=== PATIENT | female | born 1990 | race Caucasian/White ===

== ENCOUNTER 2020-11-22 12:58 | Emergency (ER) | payer BC, SELFPAY ==
[2020-11-22 13:00] VITALS: BP 112/73; PULSE 104; RESP 16; TEMP 37.2; O2SAT 97
--- NOTE | 2020-11-22 13:15 | ED.GENADULT ---
HPI - General Adult General Chief complaint: Unspecified Stated complaint: mastitis Time Seen by Provider: 11/22/20 13:03 History of Present Illness HPI narrative: Patient is a 30-year-old female who presents ER with concerns for mastitis. Patient is 5 days from a spontaneous vaginal delivery. Her OB is located in [place]. Patient reports over the last couple days she started having increasing breast pain some redness. She started some old dicloxacillin that she had leftover from several years back. Her OB called an additional antibiotics today. She reports she has been having fevers and persistent chills. She has decreased appetite. She is trying to stay hydrated with oral fluids. Patient also reports she has some discomfort with urination today. Her lochia has gone away. She has no abnormal vaginal discharge or bleeding at this time. Patient reports she has been making a lot of milk and that she is unsure of her breast pain mainly on the right side is due to increased production of milk, a clogged breast duct, or mastitis which she has had previously. There is no abnormal drainage or significant increase in redness/induration. Related Data Allergies Allergy/AdvReac Type Severity Reaction Status Date / Time No Known Allergies Allergy Verified 11/22/20 13:12 Review of Systems Constitutional: Constitutional: Reports body ache(s), Reports chills and Reports fever(s) ENT: Denies nasal congestion and Denies sore throat Respiratory: Respiratory: Denies chest congestion, Denies cough and Denies dyspnea Gastrointestinal: Gastrointestinal: Denies diarrhea, Reports nausea and Denies vomiting Integumentary/Breasts: Skin/Breast: Denies dry skin, Denies erythema and Reports skin pain PMFSH Past Medical History Medical History (Updated 11/22/20 @ 14:00 by Javier Herrera MD) Healthy female adult Surgical History Surgical History (Updated 11/22/20 @ 13:16 by Javier Herrera MD) H/O breast augmentation Social History Social History (Updated 11/22/20 @ 13:16 by Javier Herrera MD) Smoking status: Never smoker Exam Narrative: Exam Narrative: GENERAL: Well-appearing, well-nourished, and in no acute distress. HEAD: Normocephalic, atraumatic. CHEST: Clear to auscultation. No respiratory distress. HEART: Tachycardic regular.. Normal peripheral pulses. Breast exam: Normal feeling breast with reported right-sided lateral discomfort without significant evidence of cellulitis/abscess. No palpable knot/cord to indicate clogging of duct. SKIN: Warm, dry, no rash. NEURO: Alert and oriented x3. PSYCH: Normal mood and affect. Course Course Emergency Course: Patient hydrated with IV fluid. Suspect patient symptoms are coming from potential mastitis and not necessarily her urine. Recommend continuing dicloxacillin following up with her OB. Patient has been verbalized understanding of treatment plan and results. Vital Signs Vital signs: Vital Signs Temperature 98.9 F 11/22/20 13:00 Pulse Rate 104 H 11/22/20 13:00 Respiratory Rate 16 11/22/20 13:00 Blood Pressure 112/73 11/22/20 13:00 Pulse Oximetry 97 11/22/20 13:00 Temperature 98.9 F 11/22/20 13:00 Pulse Rate 104 H 11/22/20 13:00 Respiratory Rate 16 11/22/20 13:00 Blood Pressure 112/73 11/22/20 13:00 Pulse Oximetry 97 11/22/20 13:00 Medical Decision Making Vital Signs Vital Signs: Vital Signs Temperature 98.9 F 11/22/20 13:00 Pulse Rate 104 H 11/22/20 13:00 Respiratory Rate 16 11/22/20 13:00 Blood Pressure 112/73 11/22/20 13:00 Pulse Oximetry 97 11/22/20 13:00 Temperature 98.9 F 11/22/20 13:00 Pulse Rate 104 H 11/22/20 13:00 Respiratory Rate 16 11/22/20 13:00 Blood Pressure 112/73 11/22/20 13:00 Pulse Oximetry 97 11/22/20 13:00 Lab Data Labs: Lab Results 11/22/20 Range/Units 13:26 Urine Color Yellow (Yellow) Urine Appearance Cloudy H (Clear) Uri
[2020-11-22] MEDS: SODIUM CHLORIDE 0.9% IV 1,000 ML 999 ML IV CONT (13:35)
[2020-11-22 13:37] LABS: Add Urine Microscopic? YES; Appearance Urine Cloudy (Clear); Bacteria Urine Trace /hpf; Bilirubin Urine Negative (Negative); Blood Urine Negative (Negative); Color Urine Yellow (Yellow); Glucose Urine UA Negative (Negative); Ketones Urine 1+ mg/dL (Negative); Leukocyte Esterase Ur Trace LEU/UL (Negative); Mucus Urine Few /lpf; Nitrate Urine Negative (Negative); Protein Urine 2+ mg/dL (Negative); RBC Urine 0-2 /hpf (0-2); Squamous Epithelial Cell Urine Few /hpf (Few); Transitional Epi Cells Urine Rare /hpf (None Seen); Urobilinogen Urine Negative mg/dL (<2.0)
[2020-11-22 13:50] LABS: Specific Grav Ur 1.039 (1.001-1.035)
== END 2020-11-22 14:48 | disposition home or self-care (01) ==
PROVIDERS: Emergency Provider Emergency Medicine; PCP Chiropractor
DX: O91.22 Nonpurulent mastitis associated with the puerperium (principal)
CPT/HCPCS: 81001; 96360; 99283; J7030

== ENCOUNTER 2022-10-23 00:08 | Day surgery (SDC) | payer OTHER, SELFPAY ==
[2022-10-09 12:42] VITALS: BMI 19.0
--- NOTE | 2022-10-09 12:45 | PC.NURSE ---
Report to the Outpatient Waiting Room, entrance under the green pavilion located off [facility], at time 0600 on date 10/23/22. Planned Procedure Time: 0730. Time changes happen often and if your time is changed the preop area will call you the afternoon before. - You and your visitor will be asked to self-screen and do not enter if you have any COVID symptoms. - Only one visitor is requested with a max of two and NO children visitors are allowed at this time. - The patient visitor may be requested to leave or wait in car when not with patient due to distancing restrictions. - A mask is optional within the hospital at this time. Patients may have clear liquids (water, carbonated beverages, clear teas, apple juice) until 3 hours prior to surgery with a maximum of 20 ounces. - No food from midnight until time of surgery Take the following medications with a SIP of water the morning of surgery: NONE DO NOT STOP ANY OF YOUR OTHER PRESCRIPTION MEDICATIONS PRIOR TO SURGERY EXCEPT THE FOLLOWING Medications to discontinue per physician: N/A Date to take last dose: N/A Please no make-up, nail eritrean, hairspray, perfume, deodorant, or body powder the day of surgery. No jewelry (including any body piercings) or valuables the day of surgery, leave them at home. Please take a shower or bath the night before, or the morning of, surgery with an antibacterial soap. Wear comfortable, loose fitting clothing. - Jewelry must be removed prior to entering the operating room. Rings and piercings that are not removed may be cut off. - The hospital will not accept responsibility for valuables. - Please leave all valuables, including medications, at home the day of surgery. If you are going home after surgery, a licensed power truck driver must drive you home. - NO public transportation without another adult if you receive anesthesia. - We recommend that an adult stay with you for 24 hours following discharge. - We also recommend that you do not drive, make important decision, drink alcoholic beverages, or take any drugs that were not prescribed by your health care provider for at least 24 hours after your discharge time. Follow any additional instructions given to you from your surgeon. If you or anyone in your household have experienced Covid symptoms in the past week, please notify your surgeon or the nurse liaison at the phone number below for possible testing. Telephone instructions given to PT - RENEE CHAPIN and asked if any additional questions and then verbalized understanding. Patient advised to call surgeon office or pre surgery nurse liaison [phone] if any additional questions.
[2022-10-23] VITALS (8 sets, daily range): BP systolic 115–137; BP diastolic 76–88; PULSE 68–104; RESP 14–22; TEMP 36.3–37; O2SAT 100
[2022-10-23] MEDS: LACTATED RINGERS 1,000 ML 30 ML IV CONT ×2 (06:30→08:25)
--- NOTE | 2022-10-23 07:06 | WPDHPUPDATE1 ---
History and Physical Update Update Date/Time: 10/23/22 07:06 History and Physical has been reviewed, including an updated exam of the patient. There are NO changes in the patient's condition. Risks, benefits, and alternatives have been discussed and questions answered. Patient agrees to proceed with procedure.
--- NOTE | 2022-10-23 07:14 | W.PM.PROC2 ---
Procedure Note - Detailed Date of Procedure 10/23/22 Pre-op Diagnosis Hx of Breast Aug Post-op Diagnosis Same Procedure Performed Bilateral breast implant exchange Surgeon Americo Verduzco MD Anesthesia General Findings Previous implants : Smooth, intact Right: 300 Left: 280 Replacement implants: Bilateral Amaury Lagos SoftTouch 470cc Right REF# [id number] SN [id number] Left REF# [id number] SN [id number] Description of Procedure Preoperatively the risks, benefits, alternatives were discussed in extensive detail. I wanted to be very realistic about the risks involved as well as expectations. I was clear about how we could actually make her worse. She would like to be significantly larger and we discussed final sizing. She would like to utilize the same implants rather than differential. Answered all questions to satisfaction. Voiced a clear understanding. Consent obtained. She was taken the operating room placed supine on the operating room table. Anesthesia provided by anesthesiology and prepped and draped in a standard sterile fashion. Surgical time-out was taken. 1% lidocaine and 0.25% Marcaine with epinephrine was used to provide a field block. Tegaderm nipple lynne were placed. Fifteen blade used to excise the previous IMF scars. Dissection was continued down until the capsules were identified. These were dual plane position and capsulotomy was performed bilateral as needed for new implants. Also on the left IMF slight popcorn capsulorraphy to provide limited left IMF elevation. I then copiously irrigated with 3 L of saline solution on TUR tubing. Verified strict hemostasis. I then irrigated with Betadine containing solution. Using a no-touch technique and a Chris funnel the implant was introduced into the pocket. This was closed with 2-0 PDS followed by 3-0 Monocryl and a running subcuticular 4-0 Monocryl followed by tissue glue. Dressings were placed. She was woken taken to the PACU without difficulty. All instrument sponge counts were correct at the end of the case. Estimated Blood Loss 20 Drains No Packing No Pathology None sent Complications No immediate complications Condition Stable Disposition PACU
--- NOTE | 2022-10-23 07:23 | P.PNAN_ITS ---
Anes - Initial Pre Proc Eval Procedure: Operation Date: 10/23/22 07:30 Proposed Procedures p Bilateral Breast Implant Exchange - Americo Verduzco MD Date/Time: 10/23/22 07:23 Surgeon: Americo Verduzco MD Pre Op Diagnosis: Hx of Breast Aug Patient Data Age: 32 Gender: F Height: 1.73 m Weight: 56.7 kg Last Vital Signs Temp 98.6 F 10/23/22 06:30 Pulse 74 10/23/22 06:30 Resp 16 10/23/22 06:30 BP 120/76 10/23/22 06:30 Pulse Ox 100 10/23/22 06:30 O2 Del Method Room Air 10/23/22 06:30 Allergies Allergy/AdvReac Type Severity Reaction Status Date / Time No Known Allergies Allergy Verified 10/23/22 06:57 Home Medications Medication Instructions Recorded Confirmed Type norethindrone 1 mg-ethinyl 1 tablet PO DAILY 10/09/22 10/23/22 History estradiol 10 mcg (24)-iron 10 mcg(2) tablet (Lo Loestrin Fe) Patient hx anesthesia problems: none Family hx anesthesia problems: none Results Review: All pre-operative results and documents have been reviewed as part of the pre- operative evaluation. [facility] Past Medical History Medical History Healthy female adult Surgical History Surgical History (Updated 01/07/22 @ 10:22 by Leanne Upton) H/O breast augmentation Social History Social History Smoking status: Never smoker Alcohol intake: never Substance use: never Substance use type: does not use Living arrangements: with family Spiritual care concerns: No Anes - Eval Final PreProcedure Day of Procedure 10/23/22 07:23 Patient weight: normal Heart: regular rate and rhythm Lungs: clear to auscultation Airway: Mallampati scale class II Neurological: alert and oriented Last oral intake: >/= 8 hours ASA classification: I Emergent: no Anesthetic plan: proceed Anesthesia type and monitoring: general LMA and standard monitoring Results Review: All pre-operative results and documents have been reviewed as part of the pre- operative evaluation. Informed Consent: The patient's anesthetic plan and its attendant risks and benefits were discus sed with the patient/family/POA. Questions were solicited and answers provided to the satisfaction of the patient/family/POA.
[2022-10-23] MEDS: ceFAZolin 2 GM/D5W 50 ML 2 GM/50 ML BAG IVPB (07:26)
[2022-10-23] MEDS: TRANEXAMIC ACID 1,000MG/ISO100 1,000 MG/100 ML BAG 200 MG IVPB (07:35)
[2022-10-23] MEDS: NACL 0.9% IRRIG POUR BOTTLE 900 ML, GENTAMICIN SULFATE INJ 160 MG, ceFAZolin 2 GM, POVI... IRRIGATION (08:00)
[2022-10-23] MEDS: LIDO 1%/EPINEPHRINE 1:100,000 20 ML VIAL 30 ML INFILTRATE (08:09)
[2022-10-23] MEDS: BUPivacaine HCL 0.25% PF 30 ML VIAL INFILTRATE (08:09)
[2022-10-23] MEDS: ACETAMINOPHEN 500 MG TABLET 1000 MG PO (09:20)
== END 2022-10-23 09:58 | disposition home or self-care (01) ==
PROVIDERS: PCP Chiropractor; Visit Provider Surgery Plastic and Reconstructive Surgery
PROC: (CPT 19370; principal; 2022-10-23 07:30)
DX: Z41.1 Encounter for cosmetic surgery (principal)
CPT/HCPCS: 19370; 19325; A9270; J0690; J1100; J1580; J2250; J2405; J2704; J3010; J7120

== ENCOUNTER 2024-08-22 14:24 | Outpatient (CLI) | payer OTHER, SELFPAY ==
--- NOTE | ~2024-08-22 | US_ITS ---
EXAMINATION: US pelvic complete w TV INDICATION: Abnormal uterine and vaginal bleeding Comparison:No prior studies for comparison. TECHNIQUE: Multiple transabdominal and endovaginal sonographic images of the pelvis performed. FINDINGS: The uterus measures 8 x 4.6 x 3.7 cm. There is an IUD in the endometrium. The endometrial c omplex measures 5 mm. The right ovary measures 9 x 1.7 x 1.7 cm and the left ovary measures 2 x 2.1 x 1.9 cm. There are sm all follicles in each ovary. Normal doppler signal in both ovaries. There is no free fluid in the pelvis. There are no abnormal masses seen on either side. IMPRESSION: 1. Unremarkable pelvic ultrasound. Reviewed, dictated and finalized at location B. 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
== END 2024-08-22 14:25 | disposition home or self-care (01) ==
LOC: GOSHIMG 14:26
PROVIDERS: PCP Chiropractor; Visit Provider Obstetrics & Gynecology Gynecology
DX: N92.0 Excessive and frequent menstruation with regular cycle (principal)
CPT/HCPCS: 76830; 76856

== ENCOUNTER 2024-10-14 09:42 | Emergency (ER) | payer OTHER, SELFPAY ==
--- NOTE | ~2024-10-14 | XR_ITS ---
EXAMINATION: XR chest 2V DATE: 10/14/2024 12:52 INDICATION: Shortness of breath and cough. TECHNIQUE: Frontal and lateral views of the chest were obtained. COMPARISON: None. FINDINGS: There is no pneumonia, pleural effusion, or pneumothorax. The heart size is normal. Breast implants are noted. IMPRESSION: 1. No acute cardiopulmonary disease. Reviewed, dictated and finalized at location A. NICAL RECRUITER
[2024-10-14 09:53] VITALS: BP 142/79; PULSE 96; RESP 14; TEMP 36.6; O2SAT 100
--- OUTSIDE RECORDS SUMMARY | 2024-10-14 10:25 | XMS_ITS | Encounter Summary ---
Author Organization [facility] Address [address] [place] [address] Care Team Providers Care Trailer Park Manager Name Role Phone Unavailable Primary Care Provider Unavailabl e Encounter Details Date Type Department Care Team (Late st Contact Info) Description 02/25/2019 Lab Requisition [facility] Care DermPath Lab [address] [place] [id number] Ellie Victoria DO [address] [place] [address] Social History Tobacco Use Types Packs/Day Years Used Date Smoking Tobacco: Never Assessed Sex and Gender Information Value Date Recorded Sex Assigned at Not on file Gender Identity Not on file Sexual Orientation Not on file documented as of this encounter Plan of Treatment Not on file documented as of this encounter Procedures Procedure Name Priority Date/Time Associated Diagnosis Comments DERMATOPATHOLOGY Routine 02/24/2019 12:0 0 AM CDT documented in this encounter Results * DERMATOPATHOLOGY (02/24/2019 12:00 AM CDT) Case Report Dermatopathology Report Case: [id number] Authorizing Provider: Ellie Victoria DO Collected: 02/24/2019 12:00 AM Pathologist: Mony Henderson MD Received: 02/25/2019 07:28 AM Specimen: Skin, right calf 9 1:15 PM CDT DERMATOPATHOLOGY LABORATORY Final Diagnosis Specimen A. SKIN, right calf: DERMATOFIBROMA (D23.9) NOT PRESENT AT MARGIN DERMAL SCAR (L90.5) 9 1:15 PM CDT DERMATOPATHOLOGY LABORATORY Clinical History Bx proven non-healing eroded papule prior bx non specific. DF vs carcinoma. 9 1:15 PM CDT DERMATOPATHOLOGY LABORATORY Gross Description Specimen A: Received is one formalin filled container labeled with the patient's name and designated right calf. The specimen consists of a non-oriented ellipse of skin measuring [id number]. The epidermal surface consists of a centrally located 4x4mm previous biopsy site. The margin is inked green. The 12 o'clock and 6 o'clock tips are submitted in cassette 1. The remainder of the ellipse is serially sectioned and submitted in cassettes 2-3. Jar 0. 1:15 PM CDT DERMATOPATHOLOGY LABORATORY Microscopic Description Specimen A. SKIN, right calf: There is epidermal hyperplasia. Within the dermis, there are fibrohistiocytic cells in haphazard array among coarse collagen bundles. This lesion is not present at the margin of the specimen. There are fibroblasts and collagen bundles oriented parallel to the skin surface with elongated blood vessels, some of which are oriented perpendicular to the skin surface. 1:15 PM CDT DERMATOPATHOLOGY LABORATORY Disclaimer An external and internal positive and negative controls are appropriate for the histochemical, immunohistochemical and immunofluorescence stain(s) in this case (if any), except where stated explicitly. The performance characteristics of the stain(s) cited in this report were developed and its performance characteristic determined by the Dermatopathology Laboratory at [facility], directed by Dr. Anna Beal. These tests need not be, and therefore are not, approved by the [place] Food and Drug Administration. The tests are used for clinical purposes. Billing Codes Specimen Charges Stain Charges 05886 1 1:15 PM CDT DERMATOPATHOLOGY LABORATORY Embedded Images 1:15 PM CDT DERMATOPATHOLOGY LABORATORY Pathology/Cytolog y TISSUE SPECIMEN FROM SKIN / Unknown 02/24/2019 02/25/2019 7:28 AM CDT Ellie Victoria DO LAB - PATHOLOGY/C YTOLOGY ORDERABLES DERMATOPATHOLOGY LABORATORY [facility] - Department of Dermatology [address] [place] [address], [address] [place] [address], [facility] [phone] documented in this encounter Visit Diagnoses Not on filedocumented in this encounter
--- OUTSIDE RECORDS SUMMARY | 2024-10-14 10:25 | XMS_ITS | Referral Summary ---
Author Organization [facility] Address [address] [place] [address] Care Team Providers Care Inhalation Therapist Name Role Phone Jesus Suero MD Primary Care Provider Ellie Kellogg MD Unavailable [phone] Allergies No known active allergies Medications 25/iron fum/folic/dha (-1 ORAL) Take by mouth daily. Active Active Problems Problem Noted Date Diagnosed Date Mass of left wrist 04/15/2021 Term 10/12/2020 Immunizations Name Administration Dates Next Due Influenza, Unspecified 06/07/2020 Social History Tobacco Use Types Packs/Day Years Used Date Smoking Tobacco: Never Smokeless Tobacco: Never Alcohol Use Standard Drinks/Week Comments No 0 (1 standard drink = 0.6 oz pur e alcohol) [place] Depression Scale Answer Date Recorded [place] Depression Scale Total 0 10/13/2020 The thought of harming myself has occurred to me . 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 Gender Identity Not on file Sexual Orientation Not on file Last Filed Vital Signs Vital Sign Reading Time Taken Comments Blood Pressure 115/68 02/20/2022 10:52 AM CDT Pulse 74 02/20/2022 10:52 AM CDT Temperature 36.9 C (98.4 F) 10/14/2020 8:05 AM PROFESSOR OF BUSINESS ADMINISTRATION Respiratory Rate 18 10/14/2020 8:05 AM PROFESSOR OF BUSINESS ADMINISTRATION Oxygen Saturation 99% 10/13/2020 8:02 PM PROFESSOR OF BUSINESS ADMINISTRATION Inhaled Oxygen Concentration - - Weight 70.3 kg (155 lb) 10/12/2020 10:02 AM PROFESSOR OF BUSINESS ADMINISTRATION Height 172.7 cm (5' 8 ) 10/12/2020 10:02 AM PROFESSOR OF BUSINESS ADMINISTRATION Body Mass Index 23.57 10/12/2020 10:02 AM PROFESSOR OF BUSINESS ADMINISTRATION Plan of Treatment Not on file Medical Devices Implanted Type Area Research Professional Device Identifier Shelf Expiration Date Model / Serial / Lot Silicone Breast [employer] Mammomark Cormark Tissue U Marker Breast Biopsy Collagen Titanium [id number] - [id number] Implanted:Qty: 1 on 02/20/2022 at [facility] Left: Breast [employer] [id number] / / Insurance [facility] PPO [place] [facility] Advance Directives For more information, please contact: [phone] * Full Code (Latest Code Status on File) Date Activated Date Inactivated Comments 10/12/2020 9:35 PM 10/14/2020 2:38 PM * Full Code Date Activated Date Inactivated Comments 10/12/2020 10:32 AM 10/12/2020 9:35 PM Full CPR in c ase of cardiopulmonary arrest * Full Code Date Activated Date Inactivated Comments 04/02/2018 4:41 PM 04/03/2018 10:32 PM * Full Code Date Activated Date Inactivated Comments 04/01/2018 8:53 PM 04/02/2018 4:41 PM Full CPR in case of cardiopulmonary arrest Care Teams Inhalation Therapist Relationship Specialty Start Date End Date Jesus Suero MD PCP - General 10/14/17 Ellie Kellogg MD Consulting Physician Obstetrics and Gynecology 10/13/20
--- OUTSIDE RECORDS SUMMARY | 2024-10-14 10:25 | XMS_ITS | Clinical Summary ---
Author Organization [facility] Address [address] [place] [address] Care Team Providers Care Packing Inspector Name Role Phone Unavailable Primary Care Provider Unavailabl e Source Comments [facility],non-[facility] Affiliates and Associated Physician Practices is amultiple site organization consisting of ambulatory clinics and hospital sitesin [place], [place], [place] and [place]. This disclosure is being madepursuant to the Care Everywhere program and may not contain all information available regarding this patient. Last updated 18.[facility] [employer] Social History Tobacco Use Types Packs/Day Years Used Date Smoking Tobacco: Never Assessed Sex and Gender Information Value Date Recorded Sex Assigned at Not on file Gender Identity Not on file Sexual Orientation Not on file Plan of Treatment Health Maintenance Due Date Last Done Comments PAP SMEAR 1989 HIV SCREENING 2004 HEPATITIS C SCREENING 08/09/2007 DTAP/TDAP/TD VACCINES (1 - Tdap) 2008 HEPATITIS B VACCINE (1 of 3 - 19+ 3-dose series) 2008 COVID-19 VACCINE ( - 2023-2 5 season) 2024 INFLUENZA VACCINE (#1) 2024 DEPRESSION SCREENING 09/07/2024 ZOSTER VACCINE (1 of 2) 2039 HIB VACCINE Aged Out No longer eligi ble based on patient's age to complete this topic HPV VACCINE Aged Out No longer eligi ble based on patient's age to complete this topic MENINGOCOCCAL (Group B) VACCINE Aged Out No longer eligible based on patient's age to complete this topic MENINGOCOCCAL VACCINE Aged Out No darshan maximus eligible based on patient's age to complete this topic PNEUMOCOCCAL VACCINE Aged Out No long er eligible based on patient's age to complete this topic
--- OUTSIDE RECORDS SUMMARY | 2024-10-14 10:25 | XMS_ITS | Clinical Summary ---
Author Organization [facility] Address [address] [place] [address] Care Team Providers Care Steward/Stewardess Railroad Dining Car Name Role Phone Jesus Suero MD Primary Care Provider Ellie Kellogg MD Unavailable [phone] Allergies No known active allergies Medications 25/iron fum/folic/dha (-1 ORAL) Take by mouth daily. 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) High grade squamous intraepi thelial lesion of cervix - (Added by TW Conv) Mass of breast Lump or mass in breast - (Added by TW Conv) 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 Never 10/13/2020 Comments Unknown Sex and Gender Information Value Date Recorded Sex Assigned at Not on file Legal Sex Female 7:24 AM DIRECTOR AND PROFESSOR Gender Identity Not on file Sexual Orientation Not on file Obstetrics History Para Term AB IAB SAB Ectopic Multiple Livin g Live Births 3 2 2 1 1 0 2 2 Date Outcome GA Total Labor Labor/2nd/3rd Weight Sex Type Anes PTL Tonya A1 A5 Name Clin 2017 Term 39w 3d 2h 34m 1h 52m/0h 36m/0h 06m 3.459 kg (7 lb 10 oz) F Vag-S pont Epidur al N Livin g 8 9 APOLINAR VILLEDAGI RLLAU RA Foreign niño, Ellie Davis MD Complications:None Delivery Location:[facility] Facil [facility] ([facility]) 9 SAB 9w0 d 2020 Term 39w 1d 4h 31m 4h 19m/0h 08m/0h 04m 4.08 kg (8 lb 15.9 oz) M Vag-S pont Epidur al N Livin g 8 9 APOLINAR VILLEDA,SIDNEY YLAUR A Foreign niño, Ellie Davis MD Complications:None Delivery Location:This Facil [facility] ([facility]) Last Filed Vital Signs Vital Sign Reading Time Taken Comments Blood Pressure 115/68 02/20/2022 10:52 AM CDT Pulse 74 02/20/2022 10:52 AM CDT Temperature 36.9 C (98.4 F) 10/14/2020 8:05 AM DIRECTOR AND PROFESSOR Respiratory Rate 18 10/14/2020 8:05 AM DIRECTOR AND PROFESSOR Oxygen Saturation 99% 10/13/2020 8:02 PM DIRECTOR AND PROFESSOR Inhaled Oxygen Concentration - - Weight 70.3 kg (155 lb) 10/12/2020 10:02 AM DIRECTOR AND PROFESSOR Height 172.7 cm (5' 8 ) 10/12/2020 10:02 AM DIRECTOR AND PROFESSOR Body Mass Index 23.57 10/12/2020 10:02 AM DIRECTOR AND PROFESSOR Plan of Treatment Health Maintenance Due Date Last Done Comments Cervical Cancer Screening 1989 Hepatitis C Screening 1989 DTaP/Tdap/Td Vaccine (1 - Tdap) 2000 Varicella Vaccines (1 of 2 - 13+ 2-dose series) 2002 Hepatitis B Screening 2007 Regular Well Visit/Exam 18-64 2007 Depression Screening 10/13/2021 10/13/2020 Influenza Vaccine (#1) 2024 06/07/2020 HPV Vaccines Aged Out No longer eligi ble based on patient's age to complete this topic Pneumococcal vaccine <65 Aged Out No longer eligible based on patient's age to complete this topic Medical Devices Implanted Type Area Community Relations Liaison Device Identifier Shelf Expiration Date Model / Serial / Lot Silicone Breast [employer] Mammomark Cormark Tissue U Marker Breast Biopsy Collagen Titanium [id number] - [id number] Implanted:Qty: 1 on 02/20/2022 at [facility] Left: Breast [employer] [id number] / / Insurance [facility] [place] [facility] H[facility]/PPO Address: [place] [address] [facility] H[facility]/PPO Address: [place] [address] Advance Directives For more information, please contact: [phone] * Full Code (Latest Code Status on [...] in case of cardiopulmonary arrest Care Teams Steward/Stewardess Railroad Dining Car Relationship Specialty Start Date End Date Jesus Suero MD PCP - General 10/14/17 Ellie Kellogg MD Consulting Physician Obstetrics and Gynecology 10/13/20
--- OUTSIDE RECORDS SUMMARY | 2024-10-14 10:25 | XMS_ITS | Patient Health Summary ---
Author Organization [facility] [employer] Address [address] [place] [address] Care Team Providers Care Trade Show Specialist Name Role Phone Unavailable Primary Care Provider Unavailabl e Note from [facility] [employer],non-owned Affiliates and Associated Physician Practices is amultiple site organization consisting of ambulatory clinics and hospital sitesin [place], [place], [place] and [place]. This disclosure is being madepursuant to the Care Everywhere program and may not contain all information available regarding this patient. Last updated 18.[facility] [employer] Social History Tobacco Use Types Packs/Day Years Used Date Smoking Tobacco: Never Assessed Sex and Gender Information Value Date Recorded Sex Assigned at Not on file Gender Identity Not on file Sexual Orientation Not on file Procedures * DERMATOPATHOLOGY(Performed 02/24/2019) * DERMATOPATH TECHNICAL REPORT(Performed 10/19/2018) Results * DERMATOPATHOLOGY (02/24/2019 12:00 AM CDT) Case Report Dermatopathology Report Case: [id number] Authorizing Provider: Ellie Victoria DO Collected: 02/24/2019 [...] of a non-oriented ellipse of skin measuring [id number]. The epidermal surface consists of a centrally [...] characteristic determined by the Dermatopathology Laboratory at [facility], directed by Dr. Anna Beal. These tests need not be, and therefore are not, approved by the [place] Food and Drug Administration. The tests are used for clinical purposes. Billing Codes Specimen Charges Stain Charges 12982 1 9 1:15 PM CDT DERMATOPATHOLOGY LABORATORY Embedded Images 1:15 PM CDT DERMATOPATHOLOGY LABORATORY Pathology/Cytolog y TISSUE SPECIMEN FROM SKIN / Unknown 02/24/2019 02/25/2019 7:28 AM CDT Ellie Victoria DO LAB - PATHOLOGY/C YTOLOGY ORDERABLES DERMATOPATHOLOGY LABORATORY [facility] - Department of Dermatology [address] [place] [address], 5th [place] [address], [facility] [phone] * DERMATOPATH TECHNICAL REPORT (10/19/2018 12:00 AM DIRECTOR OF SOCIAL SERVICES) Case Report Dermatopathology Report Case: [id number] Authorizing Provider: Ellie Victoria DO Collected: 10/19/2018 12:00 AM Pathologist: Dulce Murphy MD Received: 10/20/2018 07:29 AM Specimen: Skin, right calf 12:27 PM [facility] DERMATOPATHOLOGY LABORATORY Addendum 1 At the request of the diagnosing physician, the technical component for Factor XIIIa was performed by [facility] Dermatopathology Laboratory. 12:27 PM [facility] DERMATOPATHOLOGY LABORATORY Addendum electronically signed by Dulce Murphy MD on 10/22/2018 at 12:27 PM Clinical History Eroded papule. Exc vs BCC vs bite. 12:27 PM [facility] DERMATOPATHOLOGY LABORATORY Gross Description Specimen A: Received is one formalin filled container labeled with the patient's name. The specimen consists of a shave measuring 7c3q5fe. Jar 0. [facility] Dermatopathology Laboratory performed the technical component only. 12:27 PM [facility] DERMATOPATHOLOGY LABORATORY Embedded Images 12:27 PM [facility] DERMATOPATHOLOGY LABORATORY DISCLAIMER An external and internal positive and negative controls are appropriate for the histochemical, immunohistochemical and immunofluorescence stain(s) in this case (if any), except where stated explicitly. The performance characteristics of the stain(s) cited in this report were developed and its performance characteristic determined by the Dermatopathology Laboratory at [facility], directed by Dr. Anna Beal. These tests need not be, and therefore are not, approved by the [place] Food and Drug Administration. The tests are used for clinical purposes. 12:27 PM [facility] DERMATOPATHOLOGY LABORATORY Pathology/Cytolog y TISSUE SPECIMEN FROM SKIN / Unknown 10/19/2018 10/20/2018 7:29 AM DIRECTOR OF SOCIAL SERVICES Ellie Victoria DO LAB - PATHOLOGY/C YTOLOGY ORDERABLES DERMATOPATHOLOGY LABORATORY [facility] - Department of Dermatology [address] [place] [address], 5th Floor Lab B [address] [phone]
--- OUTSIDE RECORDS SUMMARY | 2024-10-14 10:25 | XMS_ITS | Encounter Summary ---
Author Organization [facility] Address [address] [facility] [place] [address] Care Team Providers Care Rod Placer Name Role Phone Unavailable Primary Care Provider Unavailabl e Encounter Details Date Type Department Care Team (Late st Contact Info) Description 10/20/2018 Lab Requisition [facility] Care DermPath Lab [address] [facility], [place] [id number] Ellie Victoria DO [address] [facility] [address] [place] [address] Social History Tobacco Use Types Packs/Day Years Used Date Smoking Tobacco: Never Assessed Sex and Gender Information Value Date Recorded Sex Assigned at Not on file Gender Identity Not on file Sexual Orientation Not on file documented as of this encounter Plan of Treatment Not on file documented as of this encounter Procedures Procedure Name Priority Date/Time Associated Diagnosis Comments DERMATOPATH TECHNICAL REPORT Routine 10/19/2018 12:00 AM MARBLE MACHINE TENDER documented in this encounter Results * DERMATOPATH TECHNICAL REPORT (10/19/2018 12:00 AM MARBLE MACHINE TENDER) Case Report Dermatopathology Report Case: [id number] Authorizing Provider: Ellie Victoria DO Collected: 10/19/2018 12:00 AM Pathologist: Dulce Murphy MD Received: 10/20/2018 07:29 AM Specimen: Skin, right calf 9 12:27 PM MARBLE MACHINE TENDER DERMATOPATHOLOGY LABORATORY Addendum 1 At the request of the diagnosing physician, the technical component for Factor XIIIa was performed by [facility] Dermatopathology Laboratory. 9 12:27 PM MARBLE MACHINE TENDER DERMATOPATHOLOGY LABORATORY Addendum electronically signed by Dulce Murphy MD on 10/22/2018 at 12:27 PM Clinical History Eroded papule. Exc vs BCC vs bite. 9 12:27 PM MARBLE MACHINE TENDER DERMATOPATHOLOGY LABORATORY Gross Description Specimen A: Received is one formalin filled container labeled with the patient's name. The specimen consists of a shave measuring 1g4p7ri. Jar 0. [facility] Dermatopathology Laboratory performed the technical component only. 12:27 PM [facility] DERMATOPATHOLOGY LABORATORY Embedded Images 12:27 PM [facility] DERMATOPATHOLOGY LABORATORY DISCLAIMER An external and internal positive and negative controls are appropriate for the histochemical, immunohistochemical and immunofluorescence stain(s) in this case (if any), except where stated explicitly. The performance characteristics of the stain(s) cited in this report were developed and its performance characteristic determined by the Dermatopathology Laboratory at [facility], directed by Dr. Anna Beal. These tests need not be, and therefore are not, approved by the [place] Food and Drug Administration. The tests are used for clinical purposes. 12:27 PM [facility] DERMATOPATHOLOGY LABORATORY Pathology/Cytolog y TISSUE SPECIMEN FROM SKIN / Unknown 10/19/2018 10/20/2018 7:29 AM MARBLE MACHINE TENDER Ellie Victoria DO LAB - PATHOLOGY/C YTOLOGY ORDERABLES DERMATOPATHOLOGY LABORATORY [facility] - Department of Dermatology [address] [place] [address], [address] [place] [address], [facility] [phone] documented in this encounter Visit Diagnoses Not on filedocumented in this encounter
--- OUTSIDE RECORDS SUMMARY | 2024-10-14 10:25 | XMS_ITS | Encounter Summary ---
Author Organization [facility] Address [address] [place] [address] Phone Care Team Providers Care Life Guard Name Role Phone Ale Wiggins DO Primary Care Provider [phone] Jesus Suero MD Primary Care Provider Ellie Kellogg MD Unavailable [phone] Encounter Details Date Type Department Care Team (Latest Contact Info) Description 10/13/2017 Orders Only [facility] CONVERSION Scanning, Provider Social History Tobacco Use Types Packs/Day Years Used Date Smoking Tobacco: Never Comments Unknown Sex and Gender Information Value Date Recorded Sex Assigned at Not on file Legal Sex Female 7:24 AM MARINE CONSULTANT Gender Identity Not on file Sexual Orientation Not on file documented as of this encounter Plan of Treatment Not on file documented as of this encounter Procedures Procedure Name Priority Date/Time Associated Diagnosis Comments OBSTETRIC/GYNECOLOGY ULTRASONOGRAPHY REPORT 10/13/2017 1:52 PM MARINE CONSULTANT documented in this encounter Results * OBSTETRIC/GYNECOLOGY ULTRASONOGRAPHY REPORT (10/13/2017 1:52 PM MARINE CONSULTANT) Anatomical Region Laterality Modality Ultrasound us Provider Scanning IMG OB US PROCEDURES Final Res ult documented in this encounter Visit Diagnoses Not on filedocumented in this encounter Care Teams Life Guard Relationship Specialty Start Date End Date Ale Wiggins, DO [address] [place] [address] PCP - General 10/12/17 10/13/17 Jesus Suero MD [address] [facility] [address] [place] [address] PCP - General 10/14/17 Ellie Kellogg MD [address] [facility] [address] [place] [address] Consulting Physician Obstetrics and Gynecology 10/13/20 documented as of this encounter
--- OUTSIDE RECORDS SUMMARY | 2024-10-14 10:25 | XMS_ITS | Referral Summary ---
Author Organization [facility] Address [address] [facility] [place] [address] Care Team Providers Care Rn Child Name Role Phone Unavailable Primary Care Provider Unavailabl e Source Comments [facility] and Associated Physician Practices is amultiple site organization consisting of ambulatory clinics and hospital sitesin [place], [place], [place] and [place]. This disclosure is being madepursuant to the Care Everywhere program and may not contain all information available regarding this patient. Last updated 18.[facility] Social History Tobacco Use Types Packs/Day Years Used Date Smoking Tobacco: Never Assessed Sex and Gender Information Value Date Recorded Sex Assigned at Not on file Gender Identity Not on file Sexual Orientation Not on file Plan of Treatment Not on file
--- OUTSIDE RECORDS SUMMARY | 2024-10-14 10:25 | XMS_ITS | Encounter Summary ---
Author Organization [facility] Address [address] [place] [address] Care Team Providers Care Garden Labourer Name Role Phone Jesus Suero MD Primary Care Provider Ellie Kellogg MD Unavailable [phone] Encounter Details Date Type Department Care Team (Late st Contact Info) Description 02/11/2022 Telephone [facility] - Imaging [address] [facility] [address] [place] [id number] Cheri Goodwin RN Social History Tobacco Use Types Packs/Day Years Used Date Smoking Tobacco: Never Smokeless Tobacco: Never Alcohol Use Standard Drinks/Week Comments No 0 (1 standard drink = 0.6 oz pur e alcohol) [place] Depression Scale Answer Date Recorded [place] Depression Scale Total 0 10/13/2020 The thought of harming myself has occurred to me . Never 10/13/2020 Comments Unknown Sex and Gender Information Value Date Recorded Sex Assigned at Not on file Legal Sex Female 7:24 AM FOURDRINIER TENDER Gender Identity Not on file Sexual Orientation Not on file documented as of this encounter Plan of Treatment Not on file documented as of this encounter Visit Diagnoses Not on filedocumented in this encounter Care Teams Garden Labourer Relationship Specialty Start Date End Date Jesus Suero MD PCP - General 10/14/17 Ellie Kellogg MD Consulting Physician Obstetrics and Gynecology 10/13/20 documented as of this encounter
--- NOTE | 2024-10-14 12:38 | ECG_ITS ---
Test Date: 2024-10-14 12:54:45 Measurements Intervals [place] Rate: 76 P: 59 MT: 135 QRS: 72 QRSD: 86 T: 60 QT: 383 QTc: 431 Interpretive Statements SINUS RHYTHM CONSIDER RIGHT CONDUCTION VENTRICULAR CONDUCTION DELAY BORDERLINE T WAVE ABNORMALITY- INFERIOR LEADS BASELINE ARTIFACT- I, II, III, AVR, AVL, AVF BORDERLINE ECG No previous ECG available for comparison Electronically Signed On 10-14-2024 13:11:34 ROLL CUTTING OPERATOR by Omar Montalvo D.O.
--- OUTSIDE RECORDS SUMMARY | 2024-10-14 12:38 | XMS_ITS | Encounter Summary ---
Author Organization [facility] Address [address] [place] [place] [address] Care Team Providers Care Health Inspector Food Name Role Phone Unavailable Primary Care Provider Unavailabl e Encounter Details Date Type Department Care Team (Late st Contact Info) Description 02/25/2019 Lab Requisition [facility] Care DermPath Lab [address] [facility], [place] [id number] Ellie Victoria DO [address] [facility] [address] [place] [address] Social History Tobacco Use Types Packs/Day Years [...] AM CDT) Case Report Dermatopathology Report Case: [id number] Authorizing Provider: Ellie Victoria DO Collected: 02/24/2019 [...] of a non-oriented ellipse of skin measuring [id number]. The epidermal surface consists of a centrally [...] characteristic determined by the Dermatopathology Laboratory at [facility], directed by Dr. Anna Beal. These tests need not be, and therefore are not, approved by the [place] Food and Drug Administration. The tests are used for clinical purposes. Billing Codes Specimen Charges Stain Charges 64251 1 1:15 PM CDT DERMATOPATHOLOGY LABORATORY Embedded Images 1:15 PM CDT DERMATOPATHOLOGY LABORATORY Pathology/Cytolog y TISSUE SPECIMEN FROM SKIN / Unknown 02/24/2019 02/25/2019 7:28 AM CDT Ellie Victoria DO LAB - PATHOLOGY/C YTOLOGY ORDERABLES DERMATOPATHOLOGY LABORATORY [facility] - Department of Dermatology [address] [place] [address], 5th [place] [address], [facility] [phone] documented in this encounter Visit Diagnoses Not on filedocumented in this encounter
--- OUTSIDE RECORDS SUMMARY | 2024-10-14 12:38 | XMS_ITS | Patient Health Summary ---
Author Organization [facility] Address [address] [facility] [place] [address] Care Team Providers Care Ethics Officer Name Role Phone Unavailable Primary Care Provider Unavailabl e Note from [facility],non-owned Affiliates and Associated Physician Practices is amultiple site organization consisting of ambulatory clinics and hospital sitesin [place], [place], [place] and [place]. This disclosure is being madepursuant to the Care Everywhere program and may not contain all information available regarding this patient. Last updated 18.[facility] Social History Tobacco Use Types Packs/Day Years Used Date Smoking Tobacco: Never Assessed Sex and Gender Information Value Date Recorded Sex Assigned at Not on file Gender Identity Not on file Sexual Orientation Not on file Procedures * DERMATOPATHOLOGY(Performed 02/24/2019) * DERMATOPATH TECHNICAL REPORT(Performed 10/19/2018) Results * DERMATOPATHOLOGY (02/24/2019 12:00 AM CDT) Case Report Dermatopathology Report Case: [id number] Authorizing Provider: Ellie Victoria DO Collected: 02/24/2019 [...] of a non-oriented ellipse of skin measuring [id number]. The epidermal surface consists of a centrally [...] characteristic determined by the Dermatopathology Laboratory at [facility], directed by Dr. Anna Beal. These tests need not be, and therefore are not, approved by the [place] Food and Drug Administration. The tests are used for clinical purposes. Billing Codes Specimen Charges Stain Charges 25667 1 9 1:15 PM CDT DERMATOPATHOLOGY LABORATORY Embedded Images 1:15 PM CDT DERMATOPATHOLOGY LABORATORY Pathology/Cytolog y TISSUE SPECIMEN FROM SKIN / Unknown 02/24/2019 02/25/2019 7:28 AM CDT Ellie Victoria DO LAB - PATHOLOGY/C YTOLOGY ORDERABLES DERMATOPATHOLOGY LABORATORY [facility] - Department of Dermatology [address] [place] [address], 5th [place] [address], [facility] [phone] * DERMATOPATH TECHNICAL REPORT (10/19/2018 12:00 AM AERIAL SURVEY TECHNICIAN) Case Report Dermatopathology Report Case: [id number] Authorizing Provider: Ellie Victoria DO Collected: 10/19/2018 12:00 AM Pathologist: Dulce Murphy MD Received: 10/20/2018 07:29 AM Specimen: Skin, right calf 12:27 PM [facility] DERMATOPATHOLOGY LABORATORY Addendum 1 At the request of the diagnosing physician, the technical component for Factor XIIIa was performed by [facility] Dermatopathology Laboratory. 12:27 PM [facility] DERMATOPATHOLOGY LABORATORY Addendum electronically signed by Dulce Murphy MD on 10/22/2018 at 12:27 PM Clinical History Eroded papule. Exc vs BCC vs bite. 12:27 PM [facility] DERMATOPATHOLOGY LABORATORY Gross Description Specimen A: Received is one formalin filled container labeled with the patient's name. The specimen consists of a shave measuring 7u5v0jf. Jar 0. [facility] Dermatopathology Laboratory performed the technical component only. 12:27 PM [facility] DERMATOPATHOLOGY LABORATORY Embedded Images 12:27 PM [facility] DERMATOPATHOLOGY LABORATORY DISCLAIMER An external and internal positive and negative controls are appropriate for the histochemical, immunohistochemical and immunofluorescence stain(s) in this case (if any), except where stated explicitly. The performance characteristics of the stain(s) cited in this report were developed and its performance characteristic determined by the Dermatopathology Laboratory at [facility], directed by Dr. Anna Beal. These tests need not be, and therefore are not, approved by the [place] Food and Drug Administration. The tests are used for clinical purposes. 12:27 PM [facility] DERMATOPATHOLOGY LABORATORY Pathology/Cytolog y TISSUE SPECIMEN FROM SKIN / Unknown 10/19/2018 10/20/2018 7:29 AM AERIAL SURVEY TECHNICIAN Ellie Victoria DO LAB - PATHOLOGY/C YTOLOGY ORDERABLES DERMATOPATHOLOGY LABORATORY [facility] - Department of Dermatology [address] [place] [address], 5th Floor Lab [address] [phone]
--- OUTSIDE RECORDS SUMMARY | 2024-10-14 12:38 | XMS_ITS | Encounter Summary ---
Author Organization [facility] Address [address] [place] [address] Phone Care Team Providers Care Tack Picker Name Role Phone Ale Wiggins DO Primary Care Provider [phone] Jesus Suero MD Primary Care Provider Ellie Kellogg MD Unavailable [phone] Encounter Details Date Type Department Care Team (Latest Contact Info) Description 10/13/2017 Orders Only [facility] CONVERSION Scanning, Provider Social History Tobacco Use Types Packs/Day Years Used Date Smoking Tobacco: Never Comments Unknown Sex and Gender Information Value Date Recorded Sex Assigned at Not on file Legal Sex Female 7:24 AM PRODUCT INFO SPECIALIST Gender Identity Not on file Sexual Orientation Not on file documented as of this encounter Plan of Treatment Not on file documented as of this encounter Procedures Procedure Name Priority Date/Time Associated Diagnosis Comments OBSTETRIC/GYNECOLOGY ULTRASONOGRAPHY REPORT 10/13/2017 1:52 PM PRODUCT INFO SPECIALIST documented in this encounter Results * OBSTETRIC/GYNECOLOGY ULTRASONOGRAPHY REPORT (10/13/2017 1:52 PM PRODUCT INFO SPECIALIST) Anatomical Region Laterality Modality Ultrasound us Provider Scanning IMG OB US PROCEDURES Final Res ult documented in this encounter Visit Diagnoses Not on filedocumented in this encounter Care Teams Tack Picker Relationship Specialty Start Date End Date Ale Wiggins, DO [address] [place] [id number] PCP - General 10/12/17 10/13/17 Jesus Suero MD [address] [facility] [address] [place] [address] PCP - General 10/14/17 Ellie Kellogg MD [address] [facility] [address] [place] [address] Consulting Physician Obstetrics and Gynecology 10/13/20 documented as of this encounter
--- OUTSIDE RECORDS SUMMARY | 2024-10-14 12:38 | XMS_ITS | Clinical Summary ---
Author Organization [facility] Address [address] [place] [address] Care Team Providers Care Department Operations Manager Name Role Phone Unavailable Primary Care Provider Unavailabl e Source Comments [facility] and Associated Physician Practices is amultiple site organization consisting of ambulatory clinics and hospital sitesin [place], [place], [place] and [place]. This disclosure is being madepursuant to the Care Everywhere program and may not contain all information available regarding this patient. Last updated 18.[facility] [place] Social History Tobacco Use Types Packs/Day Years [...]
--- OUTSIDE RECORDS SUMMARY | 2024-10-14 12:38 | XMS_ITS | Referral Summary ---
Author Organization [facility] Address [address] [place] [address] Care Team Providers Care Paint Trimmer Pipe Bowls Name Role Phone Unavailable Primary Care Provider Unavailabl e Source Comments [facility] and Associated Physician Practices is amultiple site organization consisting of ambulatory clinics and hospital sitesin [place], [place], [place]. This disclosure is being madepursuant to the Care Everywhere program and may not contain all information available regarding this patient. Last updated 18.[facility] Social History Tobacco Use Types Packs/Day Years Used Date Smoking Tobacco: Never Assessed Sex and Gender Information Value Date Recorded Sex Assigned at Not on file Gender Identity Not on file Sexual Orientation Not on file Plan of Treatment Not on file
--- OUTSIDE RECORDS SUMMARY | 2024-10-14 12:38 | XMS_ITS | Encounter Summary ---
Author Organization [facility] Address [address] [place] [address] Care Team Providers Care Adzing And Boring Machine Helper Name Role Phone Jesus Suero MD Primary Care Provider Ellie Kellogg MD Unavailable [phone] Encounter Details Date Type Department Care Team (Late st Contact Info) Description 02/11/2022 Telephone [facility] - Imaging [address] [place] [address] Cheri Goodwin RN Social History Tobacco Use Types Packs/Day Years Used Date Smoking Tobacco: Never Smokeless Tobacco: Never Alcohol Use Standard Drinks/Week Comments No 0 (1 standard drink = 0.6 oz pur e alcohol) Brinson Depression Scale Answer Date Recorded Brinson Depression Scale Total 0 10/13/2020 The thought of harming myself has occurred to me . Never 10/13/2020 Comments Unknown Sex and Gender Information Value Date Recorded Sex Assigned at Not on file Legal Sex Female 7:24 AM WOOL PRESSER Gender Identity Not on file Sexual Orientation Not on file documented as of this encounter Plan of Treatment Not on file documented as of this encounter Visit Diagnoses Not on filedocumented in this encounter Care Teams Adzing And Boring Machine Helper Relationship Specialty Start Date End Date Jesus Suero MD PCP - General 10/14/17 Ellie Kellogg MD Consulting Physician Obstetrics and Gynecology 10/13/20 documented as of this encounter
--- OUTSIDE RECORDS SUMMARY | 2024-10-14 12:38 | XMS_ITS | Encounter Summary ---
Author Organization [facility] Address [address] [place] [address] Care Team Providers Care Protective Clothing Issuer Name Role Phone Unavailable Primary Care Provider Unavailabl e Encounter Details Date Type Department Care Team (Late st Contact Info) Description 10/20/2018 Lab Requisition [facility] [address] [place] [id number] Ellie Victoria DO [address] [facility] [address] [place] [address] Social History Tobacco Use Types Packs/Day Years [...] DERMATOPATH TECHNICAL REPORT Routine 10/19/2018 12:00 AM STORM CHASER documented in this encounter Results * DERMATOPATH TECHNICAL REPORT (10/19/2018 12:00 AM STORM CHASER) Case Report Dermatopathology Report Case: [id number] Authorizing Provider: Ellie Victoria DO Collected: 10/19/2018 12:00 AM Pathologist: Dulce Murphy MD Received: 10/20/2018 07:29 AM Specimen: Skin, right calf 9 12:27 PM ST[facility]ER DERMATOPATHOLOGY LABORATORY Addendum 1 At the request of the diagnosing physician, the technical component for Factor XIIIa was performed by [facility] Dermatopathology [facility]. 9 12:27 PM [facility]ERMATOP[facility]OLOGY LABORATORY Addendum electronically signed by Dulce Murphy MD on 10/22/2018 at 12:27 PM Clinical History Eroded papule. Exc vs BCC vs bite. 9 12:27 PM [facility]ERMATOPATHOLOGY [facility]ORATORY Gross Description Specimen A: Received is one formalin filled container labeled with the patient's name. The specimen consists of a shave measuring [id number]. Jar 0. [facility] performed the technical component only. 12:27 PM [facility] DERMAT[facility]Y [facility]OR[facility]ORY Embedded Images 12:27 PM [facility] DERMATOPATHOLOGY LABORATORY DISCLAIMER An external and internal positive and negative controls are appropriate for the histochemical, immunohistochemical and immunofluorescence stain(s) in this case (if any), except where stated explicitly. The performance characteristics of the stain(s) cited in this report were developed and its performance characteristic determined by the Dermatopathology Laboratory at [facility], directed by Dr. Anna Beal. These tests need not be, and therefore are not, approved by the [place] Food and Drug Administration. The tests are used for clinical purposes. 12:27 PM [facility] DERMATOPATHOLOGY LABORATORY Pathology/Cytolog y TISSUE SPECIMEN FROM SKIN / Unknown 10/19/2018 10/20/2018 7:29 AM STORM CHASER Ellie Victoria DO LAB - PATHOLOGY/C YTOLOGY ORDERABLES DERMATOPATHOLOGY LABORATORY [facility] - Department of Dermatology [address] [place] [address], [address] [place] [address], [facility] [phone] documented in this encounter Visit Diagnoses Not on filedocumented in this encounter
--- OUTSIDE RECORDS SUMMARY | 2024-10-14 12:38 | XMS_ITS | Referral Summary ---
Author Organization [facility] Address [address] [place] [address] Care Team Providers Care Filter Tank Operator Name Role Phone Jesus Suero MD Primary Care Provider Ellie Kellogg MD Unavailable [phone] Allergies No known active allergies Medications 25/iron [...] drink = 0.6 oz pur e alcohol) [place] Depression Scale Answer Date Recorded [place] Depression Scale Total 0 10/13/2020 The thought of harming myself has occurred to me . Never 10/13/2020 Comments Unknown Sex and Gender Information Value Date Recorded Sex Assigned at Not on file Legal Sex Female 7:24 AM DELIVERY AGENT Gender Identity Not on file Sexual Orientation Not on file Last Filed Vital Signs Vital Sign Reading Time Taken Comments Blood Pressure 115/68 02/20/2022 10:52 AM CDT Pulse 74 02/20/2022 10:52 AM CDT Temperature 36.9 C (98.4 F) 10/14/2020 8:05 AM DELIVERY AGENT Respiratory Rate 18 10/14/2020 8:05 AM DELIVERY AGENT Oxygen Saturation 99% 10/13/2020 8:02 PM DELIVERY AGENT Inhaled Oxygen Concentration - - Weight 70.3 kg (155 lb) 10/12/2020 10:02 AM DELIVERY AGENT Height 172.7 cm (5' 8 ) 10/12/2020 10:02 AM DELIVERY AGENT Body Mass Index 23.57 10/12/2020 10:02 AM DELIVERY AGENT Plan of Treatment Not on file Medical Devices Implanted Type Area Cargo Checker Device Identifier Shelf Expiration Date Model / Serial / Lot Silicone Breast [employer] Mammomark Cormark Tissue U Marker Breast Biopsy Collagen Titanium [id number] - [id number] Implanted:Qty: 1 on 02/20/2022 at [facility] Left: Breast [employer] [id number] / / Insurance [facility] PPO [place] [facility] H[facility]/PPO Address: [address] [address] [place] [address] R [facility]/PPO Address: [address] [address] Advance Directives For more information, please contact: [phone] * Full Code (Latest Code Status on [...] in case of cardiopulmonary arrest Care Teams Filter Tank Operator Relationship Specialty Start Date End Date Jesus Suero MD PCP - General 10/14/17 Ellie Kellogg MD Consulting Physician Obstetrics and Gynecology 10/13/20
--- OUTSIDE RECORDS SUMMARY | 2024-10-14 12:38 | XMS_ITS | Clinical Summary ---
Author Organization [facility] Address [address] [place] [address] Care Team Providers Care Commercial Airline Pilot Name Role Phone Jesus Suero MD Primary Care Provider Ellie Kellogg MD Unavailable [phone] Allergies No known active allergies Medications 25/iron fum/folic/dha (-1 ORAL) Take by mouth daily. Active Active Problems Problem Noted Date Diagnosed Date Mass of left wrist 04/15/2021 Term 10/12/2020 Immunizations Name Administration Dates Next Due Influenza, Unspecified 06/07/2020 Surgical History Surgery Date Site/Laterality Comments [place] ENLARGE BREAST Breast Surgery Enlargement Procedure - [...] drink = 0.6 oz pur e alcohol) [place] Depression Scale Answer Date Recorded [place] Depression Scale Total 0 10/13/2020 The thought of harming myself has occurred to me . Never 10/13/2020 Comments Unknown Sex and Gender Information Value Date Recorded Sex Assigned at Not on file Legal Sex Female 7:24 AM BERRY PICKER MACHINE OPERATOR Gender Identity Not on file Sexual Orientation [...] Davis MD Complications:None Delivery Location:This Facil ity ([facility]) 9 SAB 9w0 d 2020 Term 39w 1d 4h 31m 4h 19m/0h 08m/0h 04m 4.08 kg (8 lb 15.9 oz) M Vag-S pont Epidur al N Livin g 8 9 APOLINAR VILLEDA,SIDNEY YLAUR A Foreign niño, Ellie Davis MD Complications:None Delivery Location:This Facil ity ([facility]) Last Filed Vital Signs Vital Sign Reading Time Taken Comments Blood Pressure 115/68 02/20/2022 10:52 AM CDT Pulse 74 02/20/2022 10:52 AM CDT Temperature 36.9 C (98.4 F) 10/14/2020 8:05 AM BERRY PICKER MACHINE OPERATOR Respiratory Rate 18 10/14/2020 8:05 AM BERRY PICKER MACHINE OPERATOR Oxygen Saturation 99% 10/13/2020 8:02 PM BERRY PICKER MACHINE OPERATOR Inhaled Oxygen Concentration - - Weight 70.3 kg (155 lb) 10/12/2020 10:02 AM BERRY PICKER MACHINE OPERATOR Height 172.7 cm (5' 8 ) 10/12/2020 10:02 AM BERRY PICKER MACHINE OPERATOR Body Mass Index 23.57 10/12/2020 10:02 AM BERRY PICKER MACHINE OPERATOR Plan of Treatment Health Maintenance Due Date [...] this topic Medical Devices Implanted Type Area Flow Manager Device Identifier Shelf Expiration Date Model / Serial / Lot Silicone Breast [employer] Mammomark Cormark Tissue U Marker Breast Biopsy Collagen Titanium [id number] - [id number] Implanted:Qty: 1 on 02/20/2022 at [facility] Left: Breast [employer] [id number] / / Insurance [facility] [place]PO [place] [facility] HMO/PPO Address: [place] [address] [facility] HMO/PPO Address: [place] [address] Advance Directives For more information, please contact: [phone] * Full Code (Latest Code Status on [...] in case of cardiopulmonary arrest Care Teams Commercial Airline Pilot Relationship Specialty Start Date End Date Jesus Suero MD PCP - General 10/14/17 Ellie Kellogg MD Consulting Physician Obstetrics and Gynecology 10/13/20
--- NOTE | 2024-10-14 12:39 | ED.URI ---
HPI - URI/Sore Throat General Chief Complaint: Upper Respiratory Infection Stated Complaint: sob, flu like symptoms Time Seen by Provider: 10/14/24 12:00 History of Present Illness HPI Narrative: 34-year-old otherwise healthy female presenting to the emergency depart with shortness of breath, chest discomfort and flu-like symptoms. She has been doing with the symptoms for about 1 week and has had 2 kids with influenza a at home. She took a course of doxycycline that was left over from previous infection at home for 6 days without any relief of her symptoms. She has been taking Tylenol, ibuprofen, cough suppressant medications and syfu-faf-[id number] medications without any significant improvement. She started having congestion cough and then slowly transition having chest discomfort, pleuritic chest pain and pain radiating from the chest or back. She endorses cough that is nonproductive and some posttussive emesis. She was otherwise in her normal state of health, not any acute distress presently. Related Data Home Medications ?Medication ?Instructions ?Recorded ?Confirmed ?Last Taken ?Type norethindrone 1 mg-ethinyl 1 tablet PO DAILY 10/09/22 10/23/22 Unknown History estradiol 10 mcg (24)-iron 10 mcg(2) tablet (Lo Loestrin Fe) Allergies Allergy/AdvReac Type Severity Reaction Status Date / Time No Known Allergies Allergy Verified 10/23/22 06:57 Review of Systems Review of Systems: as reviewed above in HPI [facility] Past Medical History Medical History Healthy female adult Surgical History Surgical History H/O breast augmentation Social History Social History Smoking status: Never smoker Alcohol intake: never Substance use: never Substance use type: does not use Living arrangements: with family Spiritual care concerns: No Exam Narrative: GENERAL: overall well-appearing not in any acute distress but coughing frequently throughout the examination. HEAD: [Normocephalic, atraumatic.] EYES: [PERRLA and EOMI.] ENT: Nares clear, no rhinorrhea or epistaxis. Mucous membranes moist. NECK: Supple. CHEST: Some asymmetric breath sounds with coarse breath sounds in the left upper lobe compared to the right, no wheezing or expiratory phase prolongation. Good air movement without any retractions. HEART: [Regular rate and rhythm]. No murmur heard. [Normal peripheral pulses.] ABDOMEN: [Soft, nondistended], [nontender], [No rigidity or guarding] EXTREMITIES: Normal range of motion. [No edema.] SKIN: Warm, dry, no rash. NEURO: [No focal deficits]. Alert and oriented [x3.] PSYCH: [Normal mood and affect.] Course Vital Signs Vital signs: Vital Signs Temperature 36.6 C 10/14/24 09:53 Pulse Rate 96 10/14/24 09:53 Respiratory Rate 14 10/14/24 09:53 Blood Pressure 142/79 H 10/14/24 09:53 Pulse Oximetry 100 10/14/24 09:53 Oxygen Delivery Room Air 10/14/24 09:53 Temperature 36.6 C 10/14/24 09:53 Pulse Rate 96 10/14/24 09:53 Respiratory Rate 14 10/14/24 09:53 Blood Pressure 142/79 H 10/14/24 09:53 Pulse Oximetry 100 10/14/24 09:53 Oxygen Delivery Room Air 10/14/24 11:44 MDM - URI/Sore Throat MDM Narrative Medical decision making narrative: 34-year-old female presenting with flu-like symptoms for last week. She was exposed influenza a at home has been having cough, congestion and upper respiratory infection symptoms that started progressing into her chest. She expresses chest pain with inspiration as well as pain going towards her back with the breathing. Completed course of doxycycline that was level from previous infection without any improvement. She is otherwise well-appearing not any acute distress. Has stable vital signs without any significant blood pressure elevations, tachycardia, fever or hypoxia. She has some asymmetry with her breath sounds but good aeration and exchange of breaths without any retractions or accessory muscle use. Is coughing frequently throughout the examination. Suspicion presently is for potential pneumonia or lower respiratory tract process such as bronchitis or pleurisy. Possible myocarditis or inflammation of the pericardium given the symptoms that she is describing. EKG was obtained as well as a two view chest x-ray, COVID fluid RSV swabs are obtained. She is given symptomatic treatments with benzonatate and acetaminophen with codeine for the cough. patient was re-evaluated had improvement with the treatments. She does still have a nonproductive cough and would likely benefit from treatment with steroid pack and maybe even albuterol. Her x-ray shows no signs of pneumonia or consolidation. She did test positive for influenza. We talked about plan of care and she was agreeable to the medication prescriptions. She was given return precautions and safe for discharge at this time. Medical Records Attestation: I reviewed the patient's medical records. Lab Data Attestation: I reviewed the patient's lab results. Labs: Lab Results 10/14/24 Range/Units 12:52 Influenza A (RT-PCR) Positive A (Negative) Influenza B (RT-PCR) Negative (Negative) RSV (RT-PCR) Negative (Negative) SARS-CoV-2 RNA (RT-PCR) Negative (Negative) Imaging Data Attestation: I personally reviewed and interpreted this imaging study as follows: My impression: Impressions Chest X-Ray 10/14/24 12:52 IMPRESSION: 1. No acute cardiopulmonary disease. Discharge Plan Discharge Clinical Impression: Influenza A, Acute upper respiratory infection Patient Disposition: Home, Self-Care Condition: Stable Instructions: Antibiotic Form, Influenza (ED), Acute Bronchitis (ED), Viral Syndrome (ED) Additional Instructions: your chest x-ray shows no pneumonia be do have some asymmetric breath sounds which could be a bronchitis or inflammation of the large airways. We will treat with steroids as well as a albuterol inhaler as needed. Follow-up with regular doctor, continue taking uhdc-lfv-hzyrmfm flu and cough suppressant medications. Return with any new or worsening concerns. Patient Language: Moldovan Prescriptions: New methylprednisolone [Medrol (Felipe)] 4 mg tablets,dose pack See Rx Instructions .ROUTE .COMPLEX Qty: 21 0RF Rx Instructions: orally per package directions albuterol sulfate 90 mcg/actuation HFA aerosol inhaler 2 puff inhalation QID PRN (Reason: shortness of breath or wheezing) Qty: 8.5 0RF benzonatate 200 mg capsule 200 mg PO TID PRN (Reason: cough) Qty: 20 0RF No Action Lo Loestrin Fe 1 mg-10 mcg (24)/10 mcg (2) Tablet 1 tablet PO DAILY Follow-up/Referrals: Jesus Suero MD [Primary Care Provider] - Time of Disposition: 14:09
[2024-10-14] MEDS: ACETAMINOPHEN/CODEINE ELIXIR (*CRX) 120-12 MG/5 ML UDC PO (12:54)
[2024-10-14] MEDS: BENZONATATE 100 MG CAPSULE 200 MG PO (12:54)
[2024-10-14 13:37] LABS: Influenza A QL RT-PCR Positive (Negative); Influenza B QL RT-PCR Negative (Negative); RSV RNA, RT-PCR Negative (Negative); SARS-CoV-2 RNA PCR Negative (Negative)
[2024-10-14 14:21] VITALS: BP 137/74; PULSE 74; RESP 20; TEMP 37.2; O2SAT 98
== END 2024-10-14 14:23 | disposition home or self-care (01) ==
PROVIDERS: Emergency Provider Student in an Organized Health Care Education/Training Program; PCP Chiropractor
DX: J10.1 Influenza due to other identified influenza virus with other respiratory manifestations (principal); Z20.822 Contact with and (suspected) exposure to COVID-19
CPT/HCPCS: 71046; 87637; 93005; 99283; A9270